=== PATIENT | male | born 1980 | race African-American/Black ===

== ENCOUNTER 2016-04-13 10:55 | Emergency (ER) | payer MEDICAID, OTHER ==
[~2016-04-13] VITALS: Ht 177.8 cm; Wt 99.8 kg
[2016-04-13 11:07] VITALS: BP 127/109
--- NOTE | 2016-04-13 11:25 | NUR ---
PT AMBULATED TO ER BED 06.
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
--- NOTE | 2016-04-13 11:40 | NUR ---
DR SALDANA EVALUATING PT AT BEDSIDE
--- NOTE | 2016-04-13 11:47 | NUR ---
PT TAKEN TO X RAY VIA W/C ACCOMMPANIED WITH COORDINATOR OF EVALUATION
[2016-04-13] MEDS ORDERED: LIDOCAINE 1% ED 50 ML ONE (11:57)
[2016-04-13] MEDS ORDERED: BACITRACIN OINT 500 UNITS/GM PKT TP ONE (12:03)
[2016-04-13 12:10] VITALS: BP 121/89
== END 2016-04-13 12:27 | disposition home or self-care (01) ==
LOC: MED 11:15
DX: L02.511 Cutaneous abscess of right hand (principal); L03.011 Cellulitis of right finger; J45.909 Unspecified asthma, uncomplicated; F17.200 Nicotine dependence, unspecified, uncomplicated
CPT/HCPCS: 26010; 73140; 99284; J2001

== ENCOUNTER 2019-10-21 11:19 | Emergency (ER) | payer OTHER ==
[~2019-10-21] VITALS: Ht 175.3 cm; Wt 158.8 kg
[2019-10-21 11:32] VITALS: BP 140/99
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
[2019-10-21 12:00] LABS: HEMATOCRIT 41.1 % (36-52); HEMOGLOBIN 12.8 g/dL (12.0-18.0); MEAN CORPUSCULAR HEMOGLOBIN 24 pg (27-31); MEAN CORPUSCULAR HGB CONC 31 g/dL (33-37); MEAN CORPUSCULAR VOLUME 76.2 fL (80-94); PLATELET COUNT (AUTO) 251 K/uL (140-450); RED CELL DISTRIBUTION WIDTH 18.8 % (11.6-13.7); WHITE BLOOD COUNT (AUTO) 11.5 K/uL (4.8-10.8)
--- NOTE | 2019-10-21 12:07 | NUR ---
URINAL PROVIDED TO PT. PT STATES HE IS NOT ABLE TO URINATE AT THIS TIME.
[2019-10-21 12:19] LABS: LYMPHOCYTES % (MANUAL) 21 % (20-46); MONOCYTES % (MANUAL) 7 % (5-12)
[2019-10-21 12:20] LABS: EOSINOPHILS % (MANUAL) 4 % (0-4)
[2019-10-21 12:27] LABS: SALICYLATE < 2.8 mg/dL (2.8-20.0)
[2019-10-21 12:28] LABS: ACETAMINOPHEN < 0.5 ug/ml (10-30)
[2019-10-21 12:39] LABS: ALBUMIN 3.5 g/dL (3.4-5.0); CARBON DIOXIDE 25.4 mmol/L (21-32); CREATININE 1.1 mg/dL (0.6-1.3); POTASSIUM 3.4 mmol/L (3.5-5.1); TOTAL BILIRUBIN 0.4 mg/dL (0.0-1.0)
--- NOTE | 2019-10-21 13:30 | NUR ---
DR. BARRY IS RE-EVALUATING PT AT BEDSIDE.
[2019-10-21 13:57] VITALS: BP 131/85
--- NOTE | 2019-10-21 13:57 | NUR ---
Patient discharged with v/s stable. Written and verbal after care instructions given and explained. Patient verbalized understanding. Ambulatory with steady gait. All questions addressed prior to discharge. Advised to follow up with PMD.
[2019-10-21 14:09] LABS: BARBITURATE, URINE NEGATIVE ng/ml (NEG <=200); BENZODIAZEPINE, URINE NEGATIVE ng/mL (NEG <=200); CANNABINOID, URINE NEGATIVE ng/mL (NEG <=50); COCAINE, URINE NEGATIVE ng/mL (NEG <=300); OPIATE, URINE NEGATIVE ng/mL (NEG <=2000); PHENCYCLIDINE SCREEN,URINE NEGATIVE ng/mL (NEG <=25)
== END 2019-10-21 13:57 | disposition home or self-care (01) ==
LOC: MED 11:19
DX: I89.0 Lymphedema, not elsewhere classified (principal); F19.10 Other psychoactive substance abuse, uncomplicated; R03.0 Elevated blood-pressure reading, without diagnosis of hypertension; R55 Syncope and collapse; J45.909 Unspecified asthma, uncomplicated; F17.210 Nicotine dependence, cigarettes, uncomplicated
CPT/HCPCS: 36415; 71045; 80053; 80305; 83880; 85025; 93005; 99285; G0480; G0482; Q0092